=== PATIENT | male | born 1945 | race Caucasian/White ===

== ENCOUNTER 2017-08-07 07:47 | Day surgery (SDC) | payer MEDICARE, OTHER ==
[~2017-08-07 07:47] MED LIST: Lactated Ringers 1,000 ML IV SCH
[2017-08-07] MEDS ORDERED: Midazolam 1 MG/ML 2 ML SDV IV ONE (09:00)
[2017-08-07] MEDS ORDERED: Propofol 200 MG/20 ML SDV IV ONE (09:00)
--- NOTE | 2017-08-07 09:32 | PCM.OPNOTE ---
- General Post-Op/Procedure Note Date of Surgery/Procedure: 08/07/17 Operative Procedure(s): c scope Findings: diverticulosis Pre Op Diagnosis: screening Post-Op Diagnosis: diverticulosis Anesthesia Technique: MAC Primary Surgeon: Roverto Kowalski Anesthesia Provider: Adi Engel Complications: None Condition: Good Free Text/Narrative:: see dictation
--- NOTE | 2017-08-07 10:11 | OR ---
DATE OF OPERATION: 08/07/2017 SURGEON: Roverto Kowalski MD PROCEDURE PERFORMED: Colonoscopy. PREOPERATIVE DIAGNOSIS: Need for screening C-scope. POSTOPERATIVE DIAGNOSIS: Scattered diverticula of the colon. INDICATIONS FOR PROCEDURE: This is a 72-year-old white male who presents for a followup colonoscopy. He was offered and accepted same. DESCRIPTION OF OPERATION: After an excellent IV sedation was administered, digital rectal exam was performed. No marked abnormality was noted. Flexible colonoscope was inserted and advanced to the cecum without difficulty. The prep was excellent. The following findings were noted. Ascending colon, occasional diverticula. Transverse colon, occasional diverticula. Descending colon, occasional diverticula. Sigmoid, occasional diverticula. Rectum, unremarkable. Colon was deflated. The scope was removed. The patient tolerated the procedure well and was taken to Recovery in a good condition. /[id number] /[id number]
== END 2017-08-07 10:30 | disposition home or self-care (01) ==
LOC: FB.SDS 07:47
PROVIDERS: ATTEND Surgery
DX: Z12.11 Encounter for screening for malignant neoplasm of colon (principal); K57.30 Diverticulosis of large intestine without perforation or abscess without bleeding; I10 Essential (primary) hypertension; E78.2 Mixed hyperlipidemia; Z79.82 Long term (current) use of aspirin; Z79.899 Other long term (current) drug therapy; Z88.8 Allergy status to other drugs, medicaments and biological substances
CPT/HCPCS: 00812; G0121; J2250; J2704; J7120